=== PATIENT | female | born 1995 | race African-American/Black ===

== ENCOUNTER 2016-11-09 10:41 | Inpatient (IN) ==
[2016-11-09] MEDS ORDERED: LACTATED RINGERS 1,000 ML IV ONE (11:25)
[2016-11-09] MEDS ORDERED: MEPERIDINE 50 MG/1 ML VIAL IV PRN (11:25)
[2016-11-09] MEDS ORDERED: BUTORPHANOL 1 MG/ML VIAL IV PRN (11:25)
[2016-11-09] MEDS ORDERED: ONDANSETRON 4 MG/2 ML VIAL IV PRN (11:25)
[2016-11-09] MEDS ORDERED: OXYTOCIN/LR 20 UNIT/1,000 ML BAG IV SCH (11:30)
[2016-11-09] MEDS ORDERED: PROMETHAZINE 25 MG/1 ML VIAL IM ONE (11:51)
[2016-11-09] MEDS ORDERED: FAMOTIDINE 20 MG/2 ML VIAL IV ONE (11:51)
[2016-11-09] MEDS ORDERED: ONDANSETRON 4 MG/2 ML VIAL IV ONE (11:51)
[2016-11-09] MEDS ORDERED: CITRIC ACID/SODIUM CITRATE 30 ML UDCUP PO ONE (11:51)
[2016-11-09] MEDS ORDERED: ePHEDrine 50 MG/ML AMP IV PRN (11:51)
[2016-11-09] MEDS ORDERED: diphenhydrAMINE 50 MG/1 ML VIAL IV PRN ×2 (11:51)
[2016-11-09] MEDS ORDERED: fentaNYL 2 MCG/ROPIV 0.2% EPID 150 ML EPIDURAL SCH (11:51)
[2016-11-09] MEDS ORDERED: hydrOXYzine HCL 25 MG/1 ML VIAL IM PRN (11:51)
[2016-11-09 11:52] LABS: Basophils % 0.2 % (0.0-0.8); Eosinophils % 0.3 % (0.00-10.9); Hematocrit 34.1 VOL% (35.7-47.0); Hemoglobin 11.4 GM/DL (12.0-16.0); Immature Granulocytes % 0.2 %; Immature Granulocytes Absolute 0.02 #; Lymphocytes # 2.9 10*3/uL (1.4-4.0); Mean Corpuscular HGB Conc 33.4 GM/DL (32-36); Mean Corpuscular Hemoglobin 30 PG (27-34); Mean Platelet Volume 11.9 FL (9.6-12.0); Monocytes # 0.6 10*3/uL (0.11-0.8); Monocytes % 5.6 % (1.7-12.7); Neutrophils # 6.4 10*3/uL (1.4-7.4); Neutrophils % 64.7 % (38.7-73.9); Platelet Count 169 T/CUMM (130-400); Red Blood Count 3.83 MC/CUMM (3.8-5.5); Red Cell Distribution Width 14.2 % (9.3-17.3); White Blood Count 9.9 T/CUMM (4-12)
[2016-11-09] MEDS ORDERED: INFLUENZA VIRUS VACCINE 0.5 ML SYRINGE IM ONE (12:30)
--- NOTE | 2016-11-09 13:08 | OB/GYN History & Physical ---
History of Present Illness Chief complaint: IUP @ 37.4 wks, Spontaneous Labor History of present illness: Ms. Lantigua is a 21 year old female that is a with EDC 11/25/16 per LMP with EGA @ 37.4 wks. Received Care @ [facility]. Records have been requested. Sent from clinic for labor management secondary to 4 cm/ 80% 0 station at clinic with c/o increasing pain with contractions that started this morning. A: IUP @ 37.4 wks, Category I FHR tracing, AROM- clear fluid, Pitocin Augmentation of Labor, GBS negative P: Admit patient, obtain admission labs. Reposition for comfort. Offer analgesics. May have epidural if desired. Questions answered to desired level of satisfaction. Home Medications Medication Instructions Recorded Confirmed Type Pnv95/Ferrous Fumarate/FA 1 each PO DAILY 12/11/14 11/09/16 History [ Tablet] Allergies Allergy/AdvReac Type Severity Reaction Status Date / Time No Known Allergies Allergy Unverified 12/11/14 19:35 12 point system: reviewed and no additional remarkable complaints except as stated Medical,Surgical,& Family Hx - Medical History Medical History: noncontributory Cardio: No history of: Cardiovascular Problems Psychological: No history of: Anxiety Disorders, ADHD, Behavior Problems, Bipolar Disorder, Depression, Previous Suicide Attempt, Violent Behavior HEENT: No history of: Ear Problem, Eye Problem, Dental Problems, Glaucoma, Oral Cancer, HEENT Problems Endocrine: No history of: Adrenal Disease, Diabetes Mellitus (IDDM), Diabetes Mellitus ( NIDDM), Thyroid Disorder, Endocrine Cancer, Endocrine Problems Rheumatology: No history of;: Psoriasis, Sjogrens, Systemic Lupus Erythematosus Respiratory: No history of: Respiratory Problems Renal: No history of: Renal Problems Gastrointestinal: No history of: GI Problems Musculoskeletal: No history of: Amputation, Back/Neck Problems Hematology: No history of: Anemia, Blood Transfusion Reaction, Bleeding Problems Reproductive: No history of: Ectopic , Complication, Reproductive Cancer , Reproductive Problems Other: History of: Miscellaneous Medical Problems (H/O GBS positive, H/O Obesity , Vitamin D deficiency, H/O BV) No history of: Anesthesia Reactions, Anaphylaxis, Cancer, Eczema, HIV, Malignant Hyperthermia, MRSA, Vancomycin-Resistant Enterococci, Skin Problems - Surgical History Cardiac Surgeries: Patient Denies: Femoral-Popliteal Bypass Graft, Cardiac Catheterization, Cardiac Surgery Thoracic Surgeries: Patient denies;: Lithotripsy, Nephrectomy, Organ Transplant, Lobectomy Neurologic Surgeries: Patient denies: Neurologic Surgery HEENT Surgeries: Patient denies: Eye Surgery, Thyroid Surgery, Tonsilectomy & Adenoidectomy Abdominal Surgeries: Patient denies: Abdominal Surgery, Hernia Repair Reproductive Surgeries: Patient denies;: Breast Surgery, Section, Dilation and Curettage, Genitourinary Surgery, Gynecologic Surgery, Hysterectomy, Tubal Ligation Orthopedic Surgeries: Patient denies;: Implanted Devices, Orthopedic Surgery, Spinal Surgery, Total Hip Replacement, Total Knee Replacement Additional Surgical History: colposcopy - Family History Family History: Reports;: Family Cancer (aunt), Family Diabetes (Dad), Family Hypertension (MOTHER) Denies;: Family Anesthesia Reaction, Family Heart Disease, Family Hematology , Family Psychiatric Problems, Family Stroke, Additional Family History - Social History Smoking Status: Never smoker Frequency of Alcohol Use: None Type of Drug Use: None Functional capacity: independent ambulation Exam TRACK LAYER - Constitutional Vitals: Vital Signs Temp Pulse Resp BP 11/09/16 12:00 97.1 F L 76 20 112/70 General appearance: no acute distress - Antepartum / Post Antpartum Exam Cervix -Dilatation: 5 cm/ 80%/ 0 station Rupture: At 1250, AROM with amniohook with clear fluid noted. Presentation: vtx Heart Rate: 140s with spontaneous variability Amberg: Every 3-4 cm/ 50-60 sec/ mild. IUPC inserted easily without difficulty with clear flashback noted Vagina: Present: normal moisture (fundal height 40 cm, EFW @ 7-7.5 pounds) Uterus exam: Present: enlarged - Head Head exam: Present: normal inspection - ENT ENT exam: Present: normal exam - Neck Neck exam: Present: normal inspection - Respiratory Respiratory exam: Present: clear to auscultation bilaterally - Cardiovascular Cardiovascular exam: Present: regular rate and rhythm - GI/Abdominal GI/Abdominal exam: Present: normal bowel sounds - Extremities Exam Extremities exam: Present: normal inspection, normal capillary refill, full ROM - Back Exam Back exam: Present: normal inspection - Neurological Exam Neurological exam: Present: alert, oriented X3, normal gait - Psychiatric Psychiatric exam: Present: normal affect, normal mood - Skin Skin exam: Present: normal color, warm, dry Assessment and Plan (1) Obesity (BMI 30-39.9) Status: Acute Current Visit: Yes (2) Group beta Strep positive Status: Acute Current Visit: No Results - Labs CBC & BMP: 11/09/16 11:44 Quality Measures - VTE Contraindication to Pharmacological VTE Prophylaxis: Clinical assessment deems Pt at low risk, no prophalaxis needed
[2016-11-09] MEDS: LACTATED RINGERS 1,000 ML IV SCH ×2 (13:30→23:52)
[2016-11-09] MEDS ORDERED: AMPICILLIN INJ 2,000 MG in SODIUM CHLORIDE 0.9% 100 ML IV ONE (14:42)
[2016-11-09 15:44] LABS: Apearance,Urine CLEAR (Clear); Bacteria,Urine Occasional /HPF (Few); Bilirubin,Urine Negative (Negative); Blood, Urine Negative (Negative); Glucose,Urine (UA) Negative (Negative); Ketones,Urine 80 mg/dL (Negative); Mucus,Urine Few /LPF (Occasional); Nitrite,Urine Negative (Negative); Protein,Urine 30 MG/DL; RBC,Urine 1 /HPF (0-4); Squamous Epithelial Cell,Urine Occasional /HPF (0-10); Urine Color Yellow (Yellow); Urine Specific Gravity 1.025 (1.001-1.035); WBC,Urine 1 /HPF (0-6)
[2016-11-09] MEDS ORDERED: miSOPROStol 200 MCG TABLET ONE (15:54)
--- NOTE | 2016-11-09 17:06 | Operative Note ---
Date of procedure: 11/09/16 Pre-op diagnosis: IUP @ 37.4 wks, Spontaneous Labor, H/O GBS positive Post-op diagnosis: other () Procedure: Received in dorsal lithotomy position, complete/ +2 station. Patient prepped and draped. At 1647, spontaneous delivery of head easily without difficulty in LIBERTAD position under an epidural anesthetic with maternal pushing efforts. Anterior then posterior shoulder delivered easily without difficulty. delivered in usual fashion and secured. Mouth and nose bulb suctioned, vigorous cry noted with good tone. Female placed on mother's abdomen. Cord doubly clamped and allowed to be cut by father of baby. Female attended per nursery RN. At 1650, spontaneous delivery of placenta via Sherice with 3 vessel cord noted, intact, normal cord insertion, no calcifications noted. Hemostasis maintained with fundal massage and Pitocin 20 units in 1000cc of LR. Perineum inspected- no lacerations noted, intact. Female in mother's chest skin to skin. Mother desires to bottle feed. Mother and baby are stable. Anesthesia: epidural Surgeon / Physician: Rimma Galaviz Estimated blood loss: other (100 cc) Specimens: other (placenta to pathology secondary to history of group beta strep positive) Condition: stable Disposition: floor Results - Labs CBC & BMP: 11/09/16 11:44 Discharge Plan - Discharge Medications No Action Pnv95/Ferrous Fumarate/FA [ Tablet] 1 each PO DAILY - Follow Up or Referral - Forms/Instructions
[2016-11-09] MEDS ORDERED: ACETAMINOPHEN 325 MG TABLET PO PRN (18:30)
[2016-11-09] MEDS ORDERED: RHO(D) IMMUNE GLOBULIN 300 MCG SYRINGE IM ONE (18:30)
[2016-11-09] MEDS ORDERED: WITCH HAZEL PADS 100/JAR TOP PRN (18:30)
[2016-11-09] MEDS ORDERED: BISACODYL 10 MG SUPP RECTAL PRN (18:30)
[2016-11-09] MEDS ORDERED: HYDROCORTISONE 2.5% RECTAL CREAM 30 GM TUBE TOP PRN (18:30)
[2016-11-09] MEDS ORDERED: DIPH/TET/ACEL PERT BOOSTER VACCINE 0.5 ML VIAL IM ONE (18:30)
[2016-11-09] MEDS ORDERED: OXYTOCIN/LR 20 UNIT/1,000 ML BAG IV ONE (18:30)
[2016-11-09] MEDS ORDERED: LANOLIN 50% CREAM 0.3 OZ TUBE TOP PRN (18:30)
[2016-11-09] MEDS ORDERED: oxyCODONE/ACETAMINOPHEN 5-325 MG TABLET PO PRN ×2 (18:30)
[2016-11-09] MEDS ORDERED: MEASLES/MUMPS/RUBELLA VACCINE 0.5 ML VIAL SUBCUT ONE (18:30)
[2016-11-09] MEDS ORDERED: BENZOCAINE 20%/MENTHOL 0.5% SPRAY 56 GM CAN TOP PRN (18:30)
[2016-11-09] MEDS ORDERED: AMPICILLIN INJ 1,000 MG in SODIUM CHLORIDE 0.9% 100 ML IV SCH (19:00)
[2016-11-09] MEDS: IBUPROFEN 800 MG TABLET PO PRN (20:15)
[2016-11-09] MEDS: DOCUSATE SODIUM 100 MG CAPSULE PO SCH (22:00)
[2016-11-10] MEDS: LACTATED RINGERS 1,000 ML IV SCH (06:18)
[2016-11-10 06:29] LABS: Basophils % 0.2 % (0.0-0.8); Eosinophils # 0.1 10*3/uL (0.0-0.87); Eosinophils % 0.4 % (0.00-10.9); Hematocrit 29.7 VOL% (35.7-47.0); Hemoglobin 9.9 GM/DL (12.0-16.0); Immature Granulocytes % 0.3 %; Immature Granulocytes Absolute 0.04 #; Lymphocytes # 2.6 10*3/uL (1.4-4.0); Lymphocytes % 22.2 % (21.3-54.2); Mean Corpuscular HGB Conc 33.3 GM/DL (32-36); Mean Corpuscular Hemoglobin 30 PG (27-34); Mean Corpuscular Volume 88.9 FL (87-102); Mean Platelet Volume 12.1 FL (9.6-12.0); Monocytes # 0.6 10*3/uL (0.11-0.8); Monocytes % 5.5 % (1.7-12.7); Neutrophils # 8.4 10*3/uL (1.4-7.4); Neutrophils % 71.4 % (38.7-73.9); Platelet Count 135 T/CUMM (130-400); Red Blood Count 3.34 MC/CUMM (3.8-5.5); Red Cell Distribution Width 13.7 % (9.3-17.3); White Blood Count 11.7 T/CUMM (4-12)
[2016-11-10] MEDS: IBUPROFEN 800 MG TABLET PO PRN ×3 (06:32→23:25)
--- NOTE | 2016-11-10 09:23 | Anesthesia ---
Anesthesia Post OP - Post Ansesthetic Evaluation Patient seen in post op: Yes Resp: within normal limits CV: within normal limits Mental: within normal limits Temp: within normal limits [id number]: within normal limits Nausea and Vomiting: within normal limits Pain: within normal limits
[2016-11-10] MEDS: DOCUSATE SODIUM 100 MG CAPSULE PO SCH ×2 (09:36→20:13)
[2016-11-11] MEDS: IBUPROFEN 800 MG TABLET PO PRN (07:45)
[2016-11-11] MEDS: DOCUSATE SODIUM 100 MG CAPSULE PO SCH (08:13)
[2016-11-11 08:29] VITALS: BP 98/54
[2016-11-11] MEDS ORDERED: MULTIVITAMIN (PRENATAL) TABLET PO SCH (11:30)
--- NOTE | 2016-11-13 11:19 | Pathology Report from [facility] ---
ACCESSION # : [id number] PATIENT NAME : Sandhya Amado ORDERING DR : MICHELA PARRA DO CLINICAL HX: IUP @ 37-5/7 weeks - Labor - Previous history of GBS positive POST-OP DX: Same SPECIMEN INFO: Placenta GROSS DESCRIPTION: Received fresh labeled "SANDHYA AMADO & PLACENTA" is a 470 gm placenta measuring 19.2 x 20.1 x 2.2 cm. The membranes are moody and translucent with a small amount of adherent clotted blood present. The umbilical cord is eccentrically inserted, contains three vessels and measures 32.1 cm. The surface is pink blue serra and partially circumarginate and some areas of prominent vascularity present. The maternal surface is hemorrhagic with adherent clotted blood, intact cotyledons and a few areas of fibrosis noted. No gross abnormalities upon sections. Sections submitted A- membranes and cord, B- and maternal surfaces. DIAGNOSIS FOR SANDHYA AMADO: PLACENTA, MEMBRANES, UMBILICAL CORD: Focal placental infarction with mild intervillous blood and attached blood clot. Tri- vessel umbilical cord, eccentrically inserted. Membranes with focal acute and chronic inflammation and attached blood. SERVICE DATE: 11/10/2016 REPORT DATE: 11/13/2016 PATHOLOGIST: Lionel Ford
--- NOTE | 2017-01-24 15:18 | Discharge Summary ---
DATE OF ADMISSION: 11/09/2016 DATE OF DISCHARGE: 11/11/2016 Ms. Lantigua is a 21-year-old 4, now para 4-0-0-4, that presented with labor at 37.4 weeks gestation. She came in to labor and delivery and at that time it was noted that she was 5 cm, 80%, 0 station. Her water ended up being ruptured with an amnihook. Labor progressed without difficulty, under Pitocin augmentation. She was group beta strep positive and she did receive ampicillin per protocol. She proceeded to deliver a female . Counter maternal assist with an epidural anesthetic. Mother and baby were doing well and she was discharged home without problems. The patient was stable. She was sent home on ferrous sulfate 325 mg p.o. t.i.d. #90 with four refills. She was also discharged home with ibuprofen 800 mg every 8 hours p.r.n. Mother was bottle feeding. She will follow up with me at [facility] in two weeks. TAVIA
== END 2016-11-11 12:15 | disposition home or self-care (01) | DRG 775 ==
LOC: N.LD 10:41 → N.OB 20:07
PROVIDERS: ADMIT Obstetrics & Gynecology; ATTEND Obstetrics & Gynecology